=== PATIENT | female | born 1950 | race Caucasian/White ===

== ENCOUNTER 2016-06-28 22:36 | Emergency (ER) | payer MEDICARE, MEDICAID ==
[2016-06-28] MEDS ORDERED: Albuterol/Ipratropium 3.0-0.5 MG/3 ML Neb Soln NEB ONE (23:07)
[2016-06-29] MEDS ORDERED: Ketorolac 60 MG/2 ML SDV IM ONE (00:15)
[2016-06-29 01:29] VITALS: BP 135/59
--- NOTE | 2016-06-29 02:08 | EDM.PDOC ---
ED HISTORY OF PRESENT ILLNESS - General Chief Complaint: Respiratory Problem Stated Complaint: SOB Time Seen by Provider: 06/28/16 22:54 Source: Reports: Patient History Limitations: Reports: No limitations - History of Present Illness INITIAL COMMENTS - FREE TEXT/NARRATIVE: History of present illness: [This 65-year-old female presented by ambulance with respiratory difficulty. She has been treated with Levaquin for her pneumonia. She received a med neb in route and is feeling better upon arrival. She is a smoker but has been cutting back. No fevers or chills. She was also complaining of something troubling her is far as her right foot thinking there was something inside of it but she said she would followup with her doctor regarding that.] Review of systems: As per history of present illness and below otherwise all systems reviewed and negative. Past medical history: As per history of present illness and as reviewed below otherwise noncontributory. Surgical history: As per history of present illness and as reviewed below otherwise noncontributory. Social history: No reported history of drug or alcohol abuse. Family history: As per history of present illness and as reviewed below otherwise noncontributory. Physical exam: HEENT: Atraumatic, normocephalic, pupils reactive, negative for conjunctival pallor or scleral icterus, mucous membranes moist, throat clear, neck supple, nontender, trachea midline. Lungs: Clear to auscultation, breath sounds equal bilaterally, chest nontender. Heart: S1S2, regular, negative for clicks, rubs, or JVD. Abdomen: Soft, nondistended, nontender. Negative for masses or hepatosplenomegaly. Negative for costovertebral tenderness. Pelvis: Stable nontender. Genitourinary: Deferred. Rectal: Deferred. Extremities: Atraumatic, negative for cords or calf pain. Neurovascular unremarkable. Neuro: Awake, alert, oriented. Cranial nerves II through XII unremarkable. Cerebellum unremarkable. Motor and sensory unremarkable throughout. Exam nonfocal. Diagnostics: [CBC complete panel chest x-ray were done. Chest x-ray I don't think is demonstrating any pneumonia.] Therapeutics: [I did give her a shot of Toradol 30 mg IM for her arthritic complaints that she was having while she was here.] Impression: [Cough and pneumonia by history] Plan: [She'll continue with her antibiotics and follow up with her primary.] Definitive disposition and diagnosis as appropriate pending reevaluation and review of above. - Related Data Allergies/ADRs: Allergies Allergy/AdvReac Type Severity Reaction Status Date / Time amitriptyline Allergy Other Verified 06/28/16 23:12 atropine [From AtroPen] Allergy Cannot Verified 06/28/16 23:12 Remember bupropion Allergy Cannot Verified 06/28/16 23:12 Remember codeine Allergy Itching Verified 06/28/16 23:12 dapiprazole Allergy Cannot Verified 06/28/16 23:12 Remember hydromorphone Allergy Cannot Verified 06/28/16 23:12 Remember modafinil Allergy Cannot Verified 06/28/16 23:12 Remember onabotulinumtoxinA Allergy Cannot Verified 06/28/16 23:12 Remember Penicillins Allergy Cannot Verified 06/28/16 23:12 Remember phenylephrine Allergy Cannot Verified 06/28/16 23:12 Remember tropicamide Allergy Cannot Verified 06/28/16 23:12 Remember Past Medical History Cardiovascular History: Reports: Hypertension Respiratory History: Reports: COPD Gastrointestinal History: Reports: Cirrhosis, Other (see below) Other Gastrointestinal History: Esophageal varices. Portal hypertensive gastropathy Musculoskeletal History: Reports: Arthritis, Other (see below) Other Musculoskeletal History: muscle pain. polyarthritis Neurological History: Reports: Other (see below) Other Neuro History: neuropathic pain of the right foot. Insomnia. Tremors Psychiatric History: Reports: Other (see below) Other Psychiatric History: major depressive disorder Immunologic History: Reports: Other (see below) Other Immunologic History: Hepatitis C Oncologic (Cancer) History: Reports: Other (see below) Other Oncologic History: Hepatocellular carcinoma Dermatologic History: Reports: Eczema, Other (see below) Other Dermatologic History: contact dermatitis - Infectious Disease History Infectious Disease History: Reports: Chicken pox, Hepatitis C, Measles, Mumps - Past Surgical History GI Surgical History: Reports: None Social & Family History - Tobacco Use Smoking Status *Q: Current Every Day Smoker Years of Tobacco use: 35 Packs/Tins Daily: 0.5 - Recreational Drug Use Recreational Drug Use: No ED ROS GENERAL - Review of Systems Review Of Systems: ROS reveals no pertinent complaints other than HPI. ED EXAM, GENERAL - Physical Exam Exam: See Below Course - Vital Signs Last Recorded V/S: Last Vital Signs Temp 36.9 C 06/29/16 01:27 Pulse 81 06/29/16 01:27 Resp 16 06/29/16 01:27 BP 135/59 L 06/29/16 01:27 Pulse Ox 92 L 06/29/16 01:27 - Orders/Labs/Meds Orders: Active Orders 24 hr Category Date Time Status RT Aerosol Therapy [RC] ASDIRECTED Care 06/28/16 23:07 Active Chest 2V [CR] Stat Exams 06/28/16 23:05 Taken Labs: Laboratory Tests 06/28/16 06/28/16 06/28/16 Range/Units 23:16 23:16 23:16 WBC 4.2 L (4.5-11.0) K/uL RBC 3.45 (3.30-5.50) M/uL Hgb 12.2 (12.0-15.0) g/dL Hct 36.5 (36.0-48.0) % MCV 106 H (80-98) fL MCH 35 H (27-31) pg MCHC 33 (32-36) % Plt Count 64 L (150-400) K/uL Neut % (Auto) 43 (36-66) % Lymph % (Auto) 38 (24-44) % [place] % (Auto) 19 H (2-6) % Eos % (Auto) 0 L (2-4) % Baso % (Auto) 0 (0-1) % Sodium 141 (140-148) mmol/L Potassium 4.1 (3.6-5.2) mmol/L Chloride 105 (100-108) mmol/L Carbon Dioxide 25 (21-32) mmol/L Anion Gap 11.0 (5.0-14.0) mmol/L BUN 15 (7-18) mg/dL Creatinine 0.9 (0.6-1.0) mg/dL Est Cr Clr Drug Dosing 54.58 mL/min Estimated GFR (MDRD) > 60 (>60) Glucose 85 (74-106) mg/dL Lactic Acid 1.3 (0.4-2.0) mmol/L Calcium 7.8 L (8.5-10.1) mg/dL Total Bilirubin 1.5 H (0.2-1.0) mg/dL AST 78 H (15-37) U/L ALT 46 (12-78) U/L Alkaline Phosphatase 89 (46-116) U/L C-Reactive Protein (0.0-0.3) mg/dL Total Protein 6.1 L (6.4-8.2) g/dL Albumin 2.7 L (3.4-5.0) g/dL Globulin 3.4 (2.3-3.5) g/dL Albumin/Globulin Ratio 0.8 L (1.2-2.2) 06/28/16 Range/Units 23:16 WBC (4.5-11.0) K/uL RBC (3.30-5.50) M/uL Hgb (12.0-15.0) g/dL Hct (36.0-48.0) % MCV (80-98) fL MCH (27-31) pg MCHC (32-36) % Plt Count (150-400) K/uL Neut % (Auto) (36-66) % Lymph % (Auto) (24-44) % [place] % (Auto) (2-6) % Eos % (Auto) (2-4) % Baso % (Auto) (0-1) % Sodium (140-148) mmol/L Potassium (3.6-5.2) mmol/L Chloride (100-108) mmol/L Carbon Dioxide (21-32) mmol/L Anion Gap (5.0-14.0) mmol/L BUN (7-18) mg/dL Creatinine (0.6-1.0) mg/dL Est Cr Clr Drug Dosing mL/min Estimated GFR (MDRD) (>60) Glucose (74-106) mg/dL Lactic Acid (0.4-2.0) mmol/L Calcium (8.5-10.1) mg/dL Total Bilirubin (0.2-1.0) mg/dL AST (15-37) U/L ALT (12-78) U/L Alkaline Phosphatase (46-116) U/L C-Reactive Protein 0.32 H (0.0-0.3) mg/dL Total Protein (6.4-8.2) g/dL Albumin (3.4-5.0) g/dL Globulin (2.3-3.5) g/dL Albumin/Globulin Ratio (1.2-2.2) Meds: Medications Discontinued Medications Generic Name Dose Route Start Last Admin Trade Name Freq PRN Reason Stop Dose Admin Albuterol/Ipratropium 3 ml 06/28/16 23:07 06/28/16 23:41 Duoneb 3.0-0.5 Mg/3 Ml NEB 06/28/16 23:08 3 ml ONETIME ONE Administration Ketorolac Tromethamine 30 mg 06/29/16 00:15 06/29/16 00:33 Toradol IM 06/29/16 00:16 30 mg ONETIME ONE Administration Departure - Departure Time of Disposition: 02:07 Disposition: Home, Self-Care 01 Condition: good Clinical Impression: Bronchitis Forms: ED Department Discharge Additional Instructions: Please followup with your primary care doctor and get medications for your nebulization machine. - My Orders Last 24 Hours: My Active Orders 06/28/16 23:05 Chest 2V [CR] Stat 06/28/16 23:07 RT Aerosol Therapy [RC] ASDIRECTED - Assessment/Plan Last 24 Hours: My Active Orders 06/28/16 23:05 Chest 2V [CR] Stat 06/28/16 23:07 RT Aerosol Therapy [RC] ASDIRECTED
--- NOTE | 2016-06-29 08:45 | CR ---
Chest 2V HISTORY: No Clinical Info FINDINGS: Heart size within normal limits. Pulmonary vasculature within normal limits. No evidence f or focal consolidation or cardiopulmonary process. IMPRESSION: No radiographic evidence for acute cardiopulmonary process.
== END 2016-06-29 02:17 | disposition home or self-care (01) ==
LOC: JP.ED 22:36
DX: J40 Bronchitis, not specified as acute or chronic (principal); Z87.01 Personal history of pneumonia (recurrent); I10 Essential (primary) hypertension; J44.9 Chronic obstructive pulmonary disease, unspecified; M19.90 Unspecified osteoarthritis, unspecified site; G62.9 Polyneuropathy, unspecified; G47.00 Insomnia, unspecified; R25.1 Tremor, unspecified; F32.9 Major depressive disorder, single episode, unspecified; F17.200 Nicotine dependence, unspecified, uncomplicated; K74.60 Unspecified cirrhosis of liver; Z88.0 Allergy status to penicillin; Z88.6 Allergy status to analgesic agent; Z88.8 Allergy status to other drugs, medicaments and biological substances
CPT/HCPCS: 36415; 71020; 80053; 83605; 85025; 86140; 94640; J1885; J7620; 96372; 99284; 99285-25

== ENCOUNTER 2016-07-27 10:36 | Emergency (ER) | payer MEDICARE, MEDICAID ==
[2016-07-27] MEDS ORDERED: Sodium Chloride 0.9% 1,000 ML IV SCH (12:30)
[2016-07-27] MEDS ORDERED: Iopamidol 612 MG/ML 100 ML Bottle IV PRN (13:36)
--- NOTE | 2016-07-27 13:44 | EDM.PDOC ---
[id number] 4d STOMACH PAIN HAS HAD LIVER CANCER Time Seen by Provider: 07/27/16 11:25 Source: Reports: Patient History Limitations: Reports: No limitations - History of Present Illness INITIAL COMMENTS - FREE TEXT/NARRATIVE: 65-year-old female with a history of liver cancer presents with abdominal pain and bloating. She had 3 days of intense and profuse diarrhea one week ago, so she "quit eating" to get further the diarrhea. 3 or 4 days ago when she tried to increase her diet she developed bloating, abdominal cramps and malaise. Her stool is more formed but still loose. She has not had any significant nausea vomiting or fevers. She was on an antibiotic one month ago for "pneumonia". She has not been traveling recently. Quality: Reports: cramping, fullness Severity: moderate Associated Symptoms (-Female): Reports: diarrhea, malaise. Denies: chest pain , back pain - Related Data Allergies/ADRs: Allergies Allergy/AdvReac Type Severity Reaction Status Date / Time amitriptyline Allergy Other Verified 07/27/16 11:16 atropine [From AtroPen] Allergy Cannot Verified 07/27/16 11:16 Remember bupropion Allergy Cannot Verified 07/27/16 11:16 Remember codeine Allergy Itching Verified 07/27/16 11:16 dapiprazole Allergy Cannot Verified 07/27/16 11:16 Remember hydromorphone Allergy Cannot Verified 07/27/16 11:16 Remember modafinil Allergy Cannot Verified 07/27/16 11:16 Remember onabotulinumtoxinA Allergy Cannot Verified 07/27/16 11:16 Remember Penicillins Allergy Cannot Verified 07/27/16 11:16 Remember phenylephrine Allergy Cannot Verified 07/27/16 11:16 Remember tropicamide Allergy Cannot Verified 07/27/16 11:16 Remember Home Meds: Home Meds Nadolol [Naldol] 20 mg PO DAILY 07/27/16 [History] Spironolactone [Aldactone] 12.5 mg PO DAILY 07/27/16 [History] Zolpidem [Ambien] 5 mg PO BEDTIME 07/27/16 [History] Past Medical History Cardiovascular History: Reports: Hypertension Respiratory History: Reports: COPD Gastrointestinal History: Reports: Cholelithiasis, Cirrhosis, Other (see below) Other Gastrointestinal History: Esophageal varices. Portal hypertensive gastropathy, hepatitis C Musculoskeletal History: Reports: Arthritis, Other (see below) Other Musculoskeletal History: muscle pain. polyarthritis Neurological History: Reports: Other (see below) Other Neuro History: neuropathic pain of the right foot, mildly in left foot. Insomnia. Tremors Psychiatric History: Reports: Other (see below) Other Psychiatric History: major depressive disorder Immunologic History: Reports: Other (see below) Other Immunologic History: Hepatitis C Oncologic (Cancer) History: Reports: Other (see below) Other Oncologic History: Hepatocellular carcinoma Dermatologic History: Reports: Eczema, Other (see below) Other Dermatologic History: contact dermatitis - Infectious Disease History Infectious Disease History: Reports: Hepatitis C - Past Surgical History Cardiovascular Surgical History: Reports: None Respiratory Surgical History: Reports: None GI Surgical History: Reports: Appendectomy Female Surgical History: Reports: Hysterectomy Musculoskeletal Surgical History: Reports: Other (see below) Other Musculoskeletal Surgeries/Procedures:: right ankle fused Social & Family History - Tobacco Use Smoking Status *Q: Current Every Day Smoker Years of Tobacco use: 50 Packs/Tins Daily: 0.5 - Recreational Drug Use Recreational Drug Use: No ED ROS GENERAL - Review of Systems Review Of Systems: See Below Constitutional: Reports: malaise, weakness. Denies: fever HEENT: Reports: No symptoms Respiratory: Denies: Shortness of Breath GI/Abdominal: Reports: Abdominal pain, Diarrhea, Decreased appetite, Distension : Reports: no symptoms Skin: Reports: no symptoms Neurological: Denies: Headache Psychiatric: Reports: No symptoms ED EXAM, GI/ABD - Physical Exam Exam: See Below Exam Limited By: No limitations General Appearance: alert, no apparent distress (Looks uncomfortable but not distressed) Eyes: bilateral: normal appearance (No jaundice) Respiratory/Chest: no respiratory distress, lungs clear Cardiovascular: regular rate, rhythm GI/Abdominal: soft, distention (diffusely mild distention and tenderness with palpation) Extremities: No: pedal edema Neurological: alert, oriented Psychiatric: normal affect, normal mood Skin Exam: Warm, Dry Course - Vital Signs Last Recorded V/S: Last Vital Signs Temp 99.0 F 07/27/16 16:50 Pulse 78 07/27/16 16:50 Resp 16 07/27/16 16:50 BP 139/53 L 07/27/16 16:50 Pulse Ox 95 07/27/16 16:50 - Orders/Labs/Meds Orders: Active Orders 24 hr Category Date Time Status Abdomen Ltd [US] Stat Exams 07/27/16 14:56 Taken Labs: Laboratory Tests 07/27/16 07/27/16 07/27/16 Range/Units 12:43 12:43 14:51 WBC 2.9 L (4.5-11.0) K/uL RBC 3.46 (3.30-5.50) M/uL Hgb 12.6 (12.0-15.0) g/dL Hct 36.8 (36.0-48.0) % MCV 106 H (80-98) fL MCH 36 H (27-31) pg MCHC 34 (32-36) % Plt Count 88 L (150-400) K/uL Neut % (Auto) 41 (36-66) % Lymph % (Auto) 41 (24-44) % [place] % (Auto) 18 H (2-6) % Eos % (Auto) 0 L (2-4) % Baso % (Auto) 0 (0-1) % Sodium 142 (140-148) mmol/L Potassium 4.3 (3.6-5.2) mmol/L Chloride 108 (100-108) mmol/L Carbon Dioxide 25 (21-32) mmol/L Anion Gap 9.3 (5.0-14.0) mmol/L BUN 9 (7-18) mg/dL Creatinine 0.8 (0.6-1.0) mg/dL Est Cr Clr Drug Dosing 53.97 mL/min Estimated GFR (MDRD) > 60 (>60) Glucose 87 (74-106) mg/dL Calcium 7.8 L (8.5-10.1) mg/dL Total Bilirubin 1.2 H (0.2-1.0) mg/dL AST 79 H (15-37) U/L ALT 45 (12-78) U/L Alkaline Phosphatase 75 (46-116) U/L Total Protein 6.5 (6.4-8.2) g/dL Albumin 2.7 L (3.4-5.0) g/dL Globulin 3.8 H (2.3-3.5) g/dL Albumin/Globulin Ratio 0.7 L (1.2-2.2) Amylase 64 (25-115) U/L Lipase 244 (73-393) U/L Urine Color Yellow Urine Appearance Clear Urine pH 6.0 (4.5-8.0) Ur Specific [place] 1.010 (1.008-1.030) Urine Protein Negative (NEGATIVE) mg/dL Urine Glucose (UA) Normal (NEGATIVE) mg/dL Urine Ketones Negative (NEGATIVE) mg/dL Urine Occult Blood Negative (NEGATIVE) Urine Nitrite Negative (NEGATIVE) Urine Bilirubin Negative (NEGATIVE) Urine Urobilinogen Normal (NORMAL) mg/dL Ur Leukocyte Esterase Negative (NEGATIVE) Urine RBC 0-5 (0-5) Urine WBC 0-5 (0-5) Ur Epithelial Cells Rare Amorphous Sediment Not seen Urine Bacteria Rare Urine Mucus Rare Meds: Medications Discontinued Medications Generic Name Dose Route Start Last Admin Trade Name Freq PRN Reason Stop Dose Admin Sodium Chloride 1,000 mls @ 500 mls/hr 07/27/16 12:30 07/27/16 12:50 Normal Saline IV 500 mls/hr ASDIRECTED NORMA Administration Sodium Chloride 70 mls @ 3 mls/sec 07/27/16 13:45 07/27/16 13:45 Normal Saline IV 07/27/16 23:00 3 mls/sec ASDIRECTED NORMA Administration Iopamidol 94 ml 07/27/16 13:36 07/27/16 13:45 Isovue-300 (61%) IV 07/28/16 13:37 94 ml . DIRECTED PRN Administration RADIOLOGY EXAM - Re-Assessments/Exams Free Text/Narrative Re-Assessment/Exam: 07/27/16 13:44 CBC CMP amylase and lipase were obtained. White count was actually low at 2700 , and no other specific abnormalities that would explain the pain, amylase and lipase were normal. Patient was then scanned with CT, abdomen and pelvis with IV contrast. 07/27/16 15:00 CT showed gallstones and a cirrhotic appearing liver but no inflammatory changes. She did have some colonic thickening in a patchy distribution. A gallbladder ultrasound was then obtained and we continued to attempt to get a stool sample for C. difficile testing. 07/27/16 15:50 Gallbladder ultrasound showed no acute inflammatory changes. Patient was then allowed to eat a meal. 07/27/16 16:33 Patient was monitored on afternoon and had no diarrhea. No additional treatment was given but she was sent home with a stool collection cup and C. difficile will be run on the stool sample when she returns. Prior to leaving the patient did give us a stool sample that was positive for C. difficile toxin. Vancomycin was called and in and the patient can recheck if not improving. Encouraged her to also use probiotics. Departure - Departure Time of Disposition: 16:51 Disposition: Home, Self-Care 01 Condition: good Clinical Impression: Gastroenteritis, C. difficile enteritis Abdominal pain Qualifiers: Abdominal location: generalized Qualified Code(s): R10.84 - Generalized abdominal pain Instructions: Viral Gastroenteritis, Adult, [id number], Abdominal Pain, Adult , [id number] Referrals: Haily Fernando PA [Primary Care Provider] - Forms: ED Department Discharge Care Plan Goals: Increase diet and activity as tolerated. Return with a stool sample if symptoms persist for the next 1-2 days. - My Orders Last 24 Hours: My Active Orders 07/27/16 14:56 Abdomen Ltd [US] Stat - Assessment/Plan Last 24 Hours: My Active Orders 07/27/16 14:56 Abdomen Ltd [US] Stat
--- NOTE | 2016-07-27 14:15 | CT ---
CT abdomen pelvis contrast. Indication: Abdominal pain. Total 451. Findings: Lung bases are clear. Heterogeneous attenuation of the liver with nodular appearing border indicating cirrhotic change. Mild hazy gallbladder wall thickening. There are a few stones within t he neck of the gallbladder. The spleen is prominent but not definitively enlarged. Pancreas within n ormal limits. Adrenal glands are within normal limits. There are scattered small gastrohepatic lymph nodes and peripancreatic lymph nodes. Minimal amount ascites fluid about the liver and mild amount of free pelvic fluid. Prior hysterectomy.. Prior appendectomy. Mild thickening of the descending col on and additionally of the stomach flexure. There are a few upper abdominal varices noted. Bladder i s unremarkable. Atherosclerotic nonaneurysmal aorta. 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 Within the right paravertebral musculature there is a triangular radio paque density which is likely a remote foreign body. There is fatty atrophy about the muscle at this location. A piece of glass could have this appearance. This is evident on prior plain film 7. This is at the L1 level. Impression: 1. Ascites fluid with nodular liver is indicative of cirrhotic change. 2. Gallbladder wall is thickened with stones. Findings may be due to acute cholecystitis, metabolic state can contribute to the thickening of the wall however. Consider ultrasound. 3. Colonic wall thickening is evident. Again this may be due to metabolic state and mild amount of f ree fluid correlate for nonspecific colitis could have this appearance.
[2016-07-27 16:51] VITALS: BP 139/53
== END 2016-07-27 16:51 | disposition home or self-care (01) ==
LOC: JP.ED 10:36
DX: R10.84 Generalized abdominal pain (principal); I10 Essential (primary) hypertension; J44.9 Chronic obstructive pulmonary disease, unspecified; F32.9 Major depressive disorder, single episode, unspecified; F17.210 Nicotine dependence, cigarettes, uncomplicated; Z90.49 Acquired absence of other specified parts of digestive tract; Z90.710 Acquired absence of both cervix and uterus; Z98.890 Other specified postprocedural states; Z79.899 Other long term (current) drug therapy; Z88.0 Allergy status to penicillin; Z88.5 Allergy status to narcotic agent; Z88.8 Allergy status to other drugs, medicaments and biological substances; Z85.05 Personal history of malignant neoplasm of liver
CPT/HCPCS: 36415; 74177; 76705; 80053; 81001; 82150; 83690; 85025; 87493; 96360; 96361; 99284; J7030; J7040; Q9967

== ENCOUNTER 2016-07-30 19:35 | Emergency (ER) | payer MEDICARE, MEDICAID ==
[2016-07-30] MEDS ORDERED: HYDROmorphone 1 MG/ML Syringe IVPUSH ONE (20:15)
--- NOTE | 2016-07-30 20:19 | EDM.PDOC ---
ED HPI LOWER BACK PAIN/INJURY - General Chief Complaint: Back Pain or Injury Stated Complaint: MEDICAL Time Seen by Provider: 07/30/16 20:09 Source: Reports: Patient, RN notes reviewed History Limitations: Reports: No limitations - History of Present Illness INITIAL COMMENTS - FREE TEXT/NARRATIVE: 65-year-old female presents emergency department day following an injury she had fallen off a barstool this evening this occurred after inhalation of cannabis, she has a known history of chronic back pain she is unclear if she fell on her buttox or she was helped to the ground. Was provided fentanyl and routes EMS services she states it did not help the pain denies any loss of bowel or bladder - Related Data Allergies/ADRs: Allergies Allergy/AdvReac Type Severity Reaction Status Date / Time amitriptyline Allergy Other Verified 07/30/16 19:56 atropine [From AtroPen] Allergy Cannot Verified 07/30/16 19:56 Remember bupropion Allergy Cannot Verified 07/30/16 19:56 Remember codeine Allergy Itching Verified 07/30/16 19:56 dapiprazole Allergy Cannot Verified 07/30/16 19:56 Remember hydromorphone Allergy Cannot Verified 07/30/16 19:56 Remember modafinil Allergy Cannot Verified 07/30/16 19:56 Remember onabotulinumtoxinA Allergy Cannot Verified 07/30/16 19:56 Remember Penicillins Allergy Cannot Verified 07/30/16 19:56 Remember phenylephrine Allergy Cannot Verified 07/30/16 19:56 Remember tropicamide Allergy Cannot Verified 07/30/16 19:56 Remember Home Meds: Home Meds Nadolol [Naldol] 20 mg PO DAILY 07/27/16 [History] Spironolactone [Aldactone] 12.5 mg PO DAILY 07/27/16 [History] Zolpidem [Ambien] 5 mg PO BEDTIME 07/27/16 [History] Vancomycin [Vancomycin] 5 ml PO QID 07/30/16 [History] Past Medical History Cardiovascular History: Reports: Hypertension Respiratory History: Reports: COPD Gastrointestinal History: Reports: Cholelithiasis, Cirrhosis, Other (see below) Other Gastrointestinal History: Esophageal varices. Portal hypertensive gastropathy, hepatitis C Musculoskeletal History: Reports: Arthritis, Other (see below) Other Musculoskeletal History: muscle pain. polyarthritis Neurological History: Reports: Other (see below) Other Neuro History: neuropathic pain of the right foot, mildly in left foot. Insomnia. Tremors Psychiatric History: Reports: Other (see below) Other Psychiatric History: major depressive disorder Immunologic History: Reports: Other (see below) Other Immunologic History: Hepatitis C Oncologic (Cancer) History: Reports: Other (see below) Other Oncologic History: Hepatocellular carcinoma Dermatologic History: Reports: Eczema, Other (see below) Other Dermatologic History: contact dermatitis - Infectious Disease History Infectious Disease History: Reports: Hepatitis C - Past Surgical History Cardiovascular Surgical History: Reports: None Respiratory Surgical History: Reports: None GI Surgical History: Reports: Appendectomy Female Surgical History: Reports: Hysterectomy Musculoskeletal Surgical History: Reports: Other (see below) Other Musculoskeletal Surgeries/Procedures:: right ankle fused Social & Family History - Tobacco Use Smoking Status *Q: Current Every Day Smoker Years of Tobacco use: 50 Packs/Tins Daily: 0.5 - Caffeine Use Caffeine Use: Reports: Coffee - Alcohol Use Days Per Week of Alcohol Use: 4 Number of Drinks Per Day: 2 Total Drinks Per Week: 8 - Recreational Drug Use Recreational Drug Use: Yes Drug Use in Last 12 Months: Yes Recreational Drug Type: Reports: Marijuana/Hashish Recreational Drug Use Frequency: Socially ED ROS GENERAL - Review of Systems Review Of Systems: See Below Constitutional: Reports: no symptoms Respiratory: Reports: No Symptoms Cardiovascular: Reports: No symptoms GI/Abdominal: Reports: No symptoms : Reports: no symptoms Musculoskeletal: Reports: back pain Neurological: Reports: No Symptoms ED EXAM,LOWER BACK PAIN/INJURY - Physical Exam Exam: See Below Exam Limited By: No limitations General Appearance: alert, WD/WN, no apparent distress Respiratory/Chest: no respiratory distress, lungs clear, normal breath sounds, no accessory muscle use Cardiovascular: regular rate, rhythm, no murmur GI/Abdominal: soft, non tender Back Exam: normal inspection, decreased range of motion, vertebral tenderness. No: CVA tenderness (R), CVA tenderness (L), muscle spasm, paraspinal tenderness Course - Vital Signs Last Recorded V/S: Last Vital Signs Temp 98.6 F 07/30/16 20:02 Pulse 89 07/30/16 20:49 Resp 14 07/30/16 20:30 BP 167/84 H 07/30/16 20:49 Pulse Ox 92 L 07/30/16 20:49 - Orders/Labs/Meds Orders: Active Orders 24 hr Category Date Time Status Lumbar Spine 2 or 3V [CR] Stat Exams 07/30/16 20:15 Taken Meds: Medications Discontinued Medications Generic Name Dose Route Start Last Admin Trade Name Jose Manuel PRN Reason Stop Dose Admin Hydromorphone HCl 1 mg 07/30/16 20:15 07/30/16 20:20 Dilaudid IVPUSH 07/30/16 20:16 1 mg ONETIME ONE Administration Departure - Departure Time of Disposition: 21:25 Disposition: Home, Self-Care 01 Condition: fair Clinical Impression: Back pain Qualifiers: Back pain location: low back pain Chronicity: acute Back pain laterality: bilateral Sciatica presence: without sciatica Qualified Code(s): M54.5 - Low back pain Forms: ED Department Discharge Additional Instructions: Use tramadol as needed for pain control, Please followup with your primary care provider in 3-5 days if not better, please call return to the emergency department with worsening of symptoms. - My Orders Last 24 Hours: My Active Orders 07/30/16 20:15 Lumbar Spine 2 or 3V [CR] Stat - Assessment/Plan Last 24 Hours: My Active Orders 07/30/16 20:15 Lumbar Spine 2 or 3V [CR] Stat Plan: Assessment Acuity = acute on chronic Site and laterality = exacerbation low back pain Etiology = secondary to a twisting injury Manifestations = pain Location of injury = home Lab values = lumbar spine films I did review films myself I cannot appreciate any acute process, the official read from radiology is pending Plan She had good relief with the Dilaudid provided for pain control plan is discharge home with hydrocodone, follow up with primary care 3-5 days if no improvement Patient was in agreement with the plan all questions were answered, they were instructed to return to the emergency department or call for worsening symptoms. This note was dictated using [employer] voice recognition software please call with any questions.
[2016-07-30 20:56] VITALS: BP 167/84
--- NOTE | 2016-07-31 09:15 | CR ---
L-spine There is a mild curvature lumbar spine. There are no compression deformity is. There is disc space n arrowing with hypertrophic facet changes at L4/5 and L5/S1. Aortic calcifications are noted. Impression: 1. No acute post traumatic findings.
== END 2016-07-30 23:19 | disposition home or self-care (01) ==
LOC: JP.ED 19:35
DX: M54.5 Low back pain (principal); I10 Essential (primary) hypertension; J44.9 Chronic obstructive pulmonary disease, unspecified; F32.9 Major depressive disorder, single episode, unspecified; F17.210 Nicotine dependence, cigarettes, uncomplicated; Z85.05 Personal history of malignant neoplasm of liver; Z90.49 Acquired absence of other specified parts of digestive tract; Z90.710 Acquired absence of both cervix and uterus; Z98.890 Other specified postprocedural states; Z79.899 Other long term (current) drug therapy; Z88.0 Allergy status to penicillin; Z88.5 Allergy status to narcotic agent; Z88.8 Allergy status to other drugs, medicaments and biological substances; W17.89XA Other fall from one level to another, initial encounter
CPT/HCPCS: 72100; 96374; 99284; J1170